=== PATIENT | female | born 1985 | race Caucasian/White ===

== ENCOUNTER 2020-10-17 07:06 | Day surgery (SDC) | payer MEDICAID, SELFPAY ==
[2020-10-12 08:37] LABS: Hematocrit 43.5 % (37-47); Hemoglobin 14.1 g/dL (12.0-15.0); Mean Corp Hgb Conc 32.4 g/dL (32-36); Mean Corpuscular Hgb 29.6 pg (27.0-32.0); Mean Corpuscular Volume 91.2 fL (81-99); Mean Platelet Vol. 10.2 fl (6.2-12.0); Platelet Count 288 K/mm3 (150-450); RBC Distribution Width CV 13.2 % (11.6-14.6); RBC Distribution Width SD 44.4 fl (35.1-43.9); Red Blood Count 4.77 M/mm3 (4.2-5.4); White Blood Count 5.8 K/mm3 (4.4-11.0)
--- NOTE | 2020-10-15 08:38 | PCM.HP.BLA ---
History and Physical Date of Admission: 10/17/20 Renee Hicks Physician Specialty: TAX COMPLIANCE REPRESENTATIVE H&P ? Signed Encounter Date: 10/09/2020 Expand AllCollapse All Expand All by Default Hide copied text Grahamver for details Pre-Op History and Physical ? HPI: The patient is a 35 year old female presenting for discussion regarding surgical sterilization and Leslee endometrial ablation procedures. Patient previously counseled on permanency of sterilization but wishes to proceed at this time. Patient has a history of abnormal uterine bleeding and recently had an endometrial biopsy which was benign. Patient would like to proceed with laparoscopic bilateral salpingectomy, hysteroscopy, Leslee endometrial ablation. ? She is scheduled for laparoscopic bilateral salpingectomy, hysteroscopy, Leslee endometrial ablation on 10/17/20. Procedure discussed along with risks, benefits and complications. Other alternatives discussed for management. Consent form signed? Yes. ? ? PAST MEDICAL HISTORY PAST MEDICAL HISTORY Diagnosis Date ? Abnormal Pap smear ? ? Adjustment disorder with depressed mood 03/23/2005 ? Condyloma acuminata ? ? Gonococcal cervicitis ? ? ? PAST SURGICAL HISTORY PAST SURGICAL HISTORY Procedure Laterality Date ? DELIVERY ONLY ? 01/03/15, 11/17/2004 ? , low transverse ? CONIZATION OF CERVIX, LEEP ? 07/01/2010 ? EXCIS BREAST LESION ? 01/24/2019 ? HEMORR, EXT THROMB ENUCL/ EXCIS ? 2014 ? VAGINOSCOPY ? CURRENT MEDICATIONS Current Outpatient Medications Medication Sig Dispense Refill ? ibuprofen (MOTRIN) 600 mg tablet Take 1 tablet by mouth every 6 hours as needed for Pain. 30 tablet 0 ? simethicone, chewable (MYLICON) 80 mg chewable tablet Take 1 tablet by mouth every 6 hours as needed. 30 tablet 0 ? No current facility-administered medications for this visit. ? ? ALLERGIES: Dust and Latex ? PERSONAL HISTORY: SOCIAL HISTORY Social History ? Tobacco Use ? Smoking status: Current Every Day Smoker ? ? Packs/day: 0.50 ? ? Years: 14.00 ? ? Pack years: 7.00 ? ? Types: Cigarettes ? Smokeless tobacco: Never Used Vaping Use ? Vaping Use: Never used Substance Use Topics ? Alcohol use: Yes ? ? Comment: Rarely ? Drug use: Not Currently ? ? Types: Marijuana, Cocaine, LSD ? ? Comment: not since 2005, no history of IVDA ? FAMILY HISTORY: FAMILY HISTORY FAMILY HISTORY Problem Relation Age of Onset ? Cancer Mother ? ? cervical ? Fibromyalgia Mother ? ? Breast Cancer Mother 35 ? Asthma Mother ? ? other (Lupus) Mother ? ? Kidney Disease Father ? ? Heart Attack Father ? ? Fibromyalgia Sister ? ? other (Lupus) Sister ? ? other (Crohn's) Sister ? ? No Known Problems Sister ? ? No Known Problems Sister ? ? No Known Problems Sister ? ? Thyroid Brother ? ? No Known Problems Brother ? ? No Known Problems Brother ? ? Breast Cancer Maternal Grandmother ? ? Emphysema Maternal Grandfather ? ? No Known Problems Daughter ? ? Cancer Sister ? ? cervical ? Fibromyalgia Sister ? ? No Known Problems Daughter ? ? ? REVIEW OF SYMPTOMS: negative except as noted above PHYSICAL EXAMINATION: ? VITALS: Blood pressure 110/72, weight 114 lb (51.7 kg), last menstrual period 09/19/2020. ? GENERAL: The patient is well nourished, well hydrated in no acute distress. , The patient is oriented to time, place, and person. NECK: full range of motion WET PREP: Not indicated ? IMPRESSION: Desires permanent sterilization, abnormal uterine bleeding ? PLAN: Laparoscopic bilateral salpingectomy, hysteroscopy, Leslee endometrial ablation. ? Patient was counseled on nonpermanent control options but declines at this time. Endometrial biopsy was benign and repeat STD screening was negative. Patient declines further hormonal therapy at this time- previously tried and had negative side effects ? Pt has been counseled on risks/benefits and alternatives of surgery including but not limited to anesthesia, bleeding, infection, injury to pelvic structures including bowel, bladder, ureters and vessels. Pt wishes to proceed with surgery at this time. ? Title 19 signed previously 09/11/20 ? ? I have reviewed and updated past medical and surgical history, medications and allergies Renee Hicks MD Office Visit on 10/09/2020 Office Visit on 10/09/2020 Note shared with patient
[2020-10-17] VITALS (7 sets, daily range): BP systolic 101–110; BP diastolic 60–80; PULSE 52–75; RESP 14–16; TEMP 36.2–36.6; O2SAT 100; BMI 16.9
[2020-10-17 07:39] LABS: Internal QC Validated? YES +Cl - CLEAR BKGD
[2020-10-17 07:41] LABS: Pregnancy, Urine Negative Negative
[2020-10-17] MEDS: Lactated Ringers 1,000 ML 100 ML IV ×2 (07:47→10:16)
--- NOTE | 2020-10-17 08:25 | DCINST_ITS ---
Discharge Diet: No Restrictions, - - Increase fluid intake for 48 hours. Discharge Activity: Return to Normal Activity, May Drive - when you are no longer taking narcotic pain medications., May Shower, May Take a Tub Bath - in 7 days., - - Ambulate often the next week after surgery. May resume sexual activity in: 1 week Lifting Restrictions: 20-25 Additional Activity Instructions:: Nothing in the vagina for the next 5 days. Call your doctor if your incision/area has: Continuous Slow Oozing, Sudden Increased Bleeding, Increased Pain/ Swelling, Increased Redness, Foul Smelling Discharge, Swelling at the incision site Call your doctor if you observe: Fever of 101 or Higher, Using more than one pad per hour Allergies/Adverse Reactions: Allergies latex Allergy (Verified 10/09/20 12:51) Other yeast infection with latex condom use pollen extracts Allergy (Verified 10/09/20 12:52) Other Primary Care Physician: Care Physician,No Primary [Primary Care Provider] - Test Results: Test results from this visit will be discussed in further detail at your follow- up appointment, if applicable. Please Follow Up With: Renee Clay MD When: 2 weeks call [phone]
--- NOTE | 2020-10-17 08:27 | PCM.OPRPT ---
Report of Operation Date of Procedure: 10/17/20 - start 905 end time 0948 Pre-Operative Diagnosis: Desires sterilization, AUB Post-Operative Diagnosis: same, endometriosis Surgery/Procedure Performed:: Hysteroscopy, Laparoscopic bilateral salpingectomy - failed Leslee ablation Description of Surgical Findings:: Uterine cavity anteflexed- Measured 9cm with Endocervical canal at 4cm. LESLEE device attempted mulitple times but unable to deploy completely likely due to width. On last attempt it was felt that a perforation was made at the fundal aspect- procedure stopped and laparoscopic portion ensued. nuclear equipment design engineer: reyna Rodrigez Type of Anesthesia:: General Special Medications: 0.5% marcaine Specimen's removed: bilateral fallopian tubes Drains: none Estimated Blood Loss (mL): 5 Fluids Replaced: 1000 Description of Procedure: After informed consent was obtained patient taken to the operating room she is placed in supine position she is given anesthesia simply self insert she is prepped draped normal sterile fashion. Bladder was drained prior to the start of the procedure. At this time the weighted speculum was placed the posterior fornix of the vagina then a single-tooth tenaculum was used to grasp the anterior lip of the cervix. At this time the uterus was sounded to approximately 9 cm the endocervical canal sounded to 4cm. Next cervix was dilated in incremental fashion. Once adequate dilatation was achieved the hysteroscope was inserted using normal saline as distention medium. On hysteroscopy no abnormalities appreciated. Unable to visualize tubal ostia. Cavity appeared to be narrow but attempted Leslee was still done. At this time the Leslee device was opened. The Leslee was set at 5cm. The device was placed but unable to deploy device completely possibly due to narrow uterus. Multliple attempts were made and were unsuccessful. on last attempt i felt possibl eperforation occurred- procedure stopped. Legs were placed in parallel with the abdomen the tenaculum and the weighted speculum were removed. 2 towel clamps were placed at level of umbilicus. Marcaine was injected infraumbilical and a small incision was made. The 5 mm trocar was placed under direct visualization. CO2 gas was used to insufflate the intra-abdominal cavity. At this time then the LLQ and RLQ ports were placed First Marcaine was injected and small incision was made a knife and the 5 mm trocars were placed.Upon inspection no gross abnormalities appreciated- Small perforation site on fundal aspect- left side of uterus- minimal oozing- surround bowel and pelvic structures were normal and no signs of injury. Adhesions to bladder and anterior lower aspect of uterus. The right tube was normal- possible endometriotic lesion on posterior aspect of right ovary, left ovary and bilateral side yeager as well as in posterior culdesac. the left tube was enlarged- upon manipulation and dissection the tube expelled blood- hematosalpinx. At this time then tubes were traced back to the fimbriated ends. Ligasure was used to coagulate and ligate along mesosalpinx bilaterally until tubes removed completely. Good hemostasis was appreciated. At this time procedure was deemed complete successful. The gas was desufflated on from the intra-abdominal cavity. The trochars were removed. Skin was closed using 4-0 Monocryl in a subcutaneous fashion. Dermabond glue was placed. Instrument lap and needle counts were correct ?2. The uterine manipulator was removed. Vaginal sweep was performed it was negative. There were no complications anticipated normal postoperative course for this patient. will recommend Mirena IUD vs Oral hormonal therapy for Suppression of endometriosis and AUB. Grafts/Implants Used: none - Complications uterine perforation- unable to deploy leslee device- possibly due to narrow cavity. 2 gram ancef given prior to leaving OR. - Admit VTE Documentation VTE Present on Admission: Yes VTE Mechan Device Prophylaxis: SCD's VTE Pharm Prophylaxis ordered?: No
--- NOTE | 2020-10-17 08:45 | FALS_PTH ---
PATIENT: NATAN HERNDON LOC: [facility] [place] U#:[id number] AGE/SX: 35/F ROOM: RE10/17/[address]: Dr. Renee Clay, MDDOB: 1985 BED: DIS: 10/17/2020 SPEC #: [id number] RECD: 10/17/20 10:37 STATUS: SHIMON MICHI #: [id number] HARSH: 10/17/20 08:[address]: Renee Clay DEPT: SURGICAL PATHOLOGY RECD BY: Trisha Mcrae ENTERED: 10/17/20 12:37 SP TYPE: FALL TUBES OTHR DR: No Primary Care Phys Tissues: Fallopian tube Procedures: Surgery Specimen Level III Surgery Specimen Level IV HEADER OPERATION: Hysteroscopy, laparoscopic salpingectomy PRE-OP DIAGNOSIS: Sterilization, abnormal uterine bleeding TISSUE SUBMITTED: Bilateral fallopian tubes MICROSCOPIC DIAGNOSIS Bilateral fallopian tubes, salpingectomy: One fallopian tube with mild mucosal acute and chronic inflammation, hydrosalpinx, and occluded fimbrial end. Second fallopian tube - no pathologic diagnosis. CHANTELLE:alessio 10/18/2020 MICROSCOPIC DESCRIPTION Slides are reviewed. GROSS DESCRIPTION Received in fixative is one container labeled with the patient's name and designated bilateral fallopian tubes. The specimen consists of bilateral fallopian tubes. One of the fallopian tubes measures 10 cm in length and up to 1 cm in diameter. A distinct fimbrial end is not identified. The second fallopian tube is received in multiple pieces. The two large pieces measure 7.5 cm in length and 0.5 cm in diameter. The fimbrial end is identified in one of the pieces. Two smaller ill-defined pieces are also noted measuring in aggregate 1 x 0.5 x 0.1 cm. One of the pieces appear to consist of paratubal cyst. Sections reveal unremarkable cut surfaces. Sections of fallopian tube without fimbrial end shows a dilated lumen filled with field mucoid material. The lumen measures up to 0.4 cm in diameter. Warehouse Receiving Supervisor sections are submitted in three cassettes as follows: 1 - fallopian tube received in multiple pieces including small paratubal cyst, 2 & 3 - fallopian tube without distinct fimbrial end and dilated lumen. / CHANTELLE:alessio 10/17/20 TC:2 CPT: 71460, 49500
[2020-10-17] MEDS: Bupivacaine Mpf 0.5% 30 ML VIAL (09:40)
--- NOTE | 2020-10-22 08:57 | PCM.PN.BLA ---
Progress Note late entry: i have reexamined the patient prior to her procedure- there were no changes to her status.
== END 2020-10-17 12:04 | disposition home or self-care (01) ==
LOC: SDC 07:06 → AC 07:06
PROVIDERS: Anesthesiology; Referring Provider Obstetrics & Gynecology; Visit Provider Obstetrics & Gynecology
PROC: 0U5B8ZZ Destruction of Endometrium, Via Natural or Artificial Opening Endoscopic (ICD-10-PCS; CPT 58558; 2020-10-17 08:30)
DX: Z30.2 Encounter for sterilization (principal); N93.9 Abnormal uterine and vaginal bleeding, unspecified; F17.200 Nicotine dependence, unspecified, uncomplicated
CPT/HCPCS: 00952; 58563; 58661; 36415; 81025; 85027; 88302; 88304; 88305; J7120; J2405

== ENCOUNTER 2021-02-06 07:42 | Day surgery (SDC) | payer MEDICAID, SELFPAY ==
[2020-10-17 07:32] VITALS: BMI 16.9
--- NOTE | 2021-02-04 13:13 | PCM.HP.BLA ---
History and Physical Date of Admission: 02/06/21 Renee Hicks MD Physician Specialty: NATURAL GAS PLANT TECHNICIAN H&P ? Signed Encounter Date: 01/27/2021 Expand AllCollapse All Expand All by Default Hide copied text Hover for details Pre-Op History and Physical ? HPI: The patient is a 36 year old female presenting for discussion regarding definitive management for endometriosis, abnormal uterine bleeding, pelvic pain. Patient recently underwent a laparoscopic bilateral salpingectomy and was noted to have endometriosis on exam of pelvic cavity. Patient was to have a Leslee ablation performed but due to cavity restrictions was in able to have that performed. Patient remained on Aygestin as she is not a candidate for combined oral contraceptive therapy due to smoking history. Patient has failed Aygestin with continuous bleeding and discomfort. Patient would like to proceed with definitive surgical management a total laparoscopic hysterectomy cystoscopy. ? She is scheduled for TLH, cystoscopy, for AUB, endometriosis, pelvic pain. on 02/06/21. Procedure discussed along with risks, benefits and complications. Other alternatives discussed for management. Consent form signed? Yes. ? ? PAST MEDICAL HISTORY PAST MEDICAL HISTORY Diagnosis Date ? Abnormal Pap smear ? ? Adjustment disorder with depressed mood 03/23/2005 ? Condyloma acuminata ? ? Endometriosis ? ? found on lap salpingectomy ? Gonococcal cervicitis ? ? ? PAST SURGICAL HISTORY PAST SURGICAL HISTORY Procedure Laterality Date ? DELIVERY ONLY ? 01/03/15, 11/17/2004 ? , low transverse ? CONIZATION OF CERVIX, LEEP ? 07/01/2010 ? EXCIS BREAST LESION ? 01/24/2019 ? HEMORR, EXT THROMB ENUCL/ EXCIS ? 2014 ? SALPINGECTOMY Bilateral 10/17/2020 ? bilatera- ENDOMETRIOSIS ? VAGINOSCOPY ? CURRENT MEDICATIONS Current Outpatient Medications Medication Sig Dispense Refill ? oxyCODONE-acetaminophen (PERCOCET) 5-325 mg tablet Take 1 tablet by mouth every 6 hours as needed for pain for up to 3 days. FOR PAIN. 10 tablet 0 ? docusate sodium (COLACE) 100 mg capsule Take 1 capsule by mouth twice daily. 30 capsule 0 ? buPROPion XL (WELLBUTRIN XL) 150 mg 24 hr tablet Take 1 tablet by mouth once daily. (Patient not taking: Reported on 01/27/2021 ) 30 tablet 5 ? norethindrone (AYGESTIN) 5 mg tablet Take 1 tablet by mouth once daily. (Patient not taking: Reported on 01/27/2021 ) 30 tablet 5 ? No current facility-administered medications for this visit. ? ? ALLERGIES: Dust and Latex ? PERSONAL HISTORY: SOCIAL HISTORY Social History ? Tobacco Use ? Smoking status: Current Every Day Smoker ? ? Packs/day: 0.50 ? ? Years: 14.00 ? ? Pack years: 7.00 ? ? Types: Cigarettes ? Smokeless tobacco: Never Used Vaping Use ? Vaping Use: Never used Substance Use Topics ? Alcohol use: Yes ? ? Comment: Rarely ? Drug use: Not Currently ? ? Types: Marijuana, Cocaine, LSD ? ? Comment: not since 2005, no history of IVDA ? FAMILY HISTORY: FAMILY HISTORY FAMILY HISTORY Problem Relation Age of Onset ? Cancer Mother ? ? cervical ? Fibromyalgia Mother ? ? Breast Cancer Mother 35 ? Asthma Mother ? ? other (Lupus) Mother ? ? Kidney Disease Father ? ? Heart Attack Father ? ? Fibromyalgia Sister ? ? other (Lupus) Sister ? ? other (Crohn's) Sister ? ? No Known Problems Sister ? ? No Known Problems Sister ? ? No Known Problems Sister ? ? Thyroid Brother ? ? No Known Problems Brother ? ? No Known Problems Brother ? ? Breast Cancer Maternal Grandmother ? ? Emphysema Maternal Grandfather ? ? No Known Problems Daughter ? ? Cancer Sister ? ? cervical ? Fibromyalgia Sister ? ? No Known Problems Daughter ? ? ? REVIEW OF SYMPTOMS: negative except as noted above PHYSICAL EXAMINATION: ? VITALS: Blood pressure 102/60, weight 114 lb (51.7 kg), last menstrual period 10/16/2020. ? GENERAL: The patient is well nourished, well hydrated in no acute distress. , The patient is oriented to time, place, and person. NECK: full range of motion NEURO: alert and oriented x 3 ? IMPRESSION: 36yo with AUB, Pelvic pain, Endometriosis ? PLAN: TLH, Cystoscopy ? ERAS protocol reviewed. Pt is fully vaccinated for covid, no testing required PRE and POST op instructions reviewed ? Pt has been counseled on risks/benefits and alternatives of surgery including but not limited to anesthesia, bleeding, infection, injury to pelvic structures including bowel, bladder, ureters and vessels. Pt wishes to proceed with surgery at this time. ? ? I have reviewed and updated past medical and surgical history, medications and allergies Renee Hicks MD ?9:10 AM Office Visit on 01/27/2021 Office Visit on 01/27/2021 Note shared with patient
--- NOTE | 2021-02-05 14:08 | EKG12_ITS ---
Test Reason : PRE OP Blood Pressure : / mmHG Vent. Rate : 077 BPM Atrial Rate : 077 BPM P-R Int : 172 ms QRS Dur : 102 ms QT Int : 384 ms P-R-T Axes : 072 126 051 degrees QTc Int : 434 ms Normal sinus rhythm Biatrial enlargement Incomplete right bundle branch block Abnormal ECG Confirmed by BREONNA CONLEY, CARLOS ([id number]), video editor JOSE FARLEY ([id number]) on 02/06/2021 10:43:23 AM Referred By: Renee Clay Confirmed By:CARLOS RAVI MD
[2021-02-05 14:53] LABS: Hematocrit 41.1 % (37-47); Hemoglobin 13.3 g/dL (12.0-15.0); Mean Corp Hgb Conc 32.4 g/dL (32-36); Mean Corpuscular Hgb 28.6 pg (27.0-32.0); Mean Corpuscular Volume 88.4 fL (81-99); Mean Platelet Vol. 9.5 fl (6.2-12.0); Platelet Count 297 K/mm3 (150-450); RBC Distribution Width SD 42.2 fl (35.1-43.9); Red Blood Count 4.65 M/mm3 (4.2-5.4); White Blood Count 6.8 K/mm3 (4.4-11.0)
[2021-02-05 15:33] LABS: Magnesium 2.3 mg/dL (1.6-2.6)
[2021-02-06] VITALS (10 sets, daily range): BP systolic 101–136; BP diastolic 55–72; PULSE 59–72; RESP 16; TEMP 36–36.9; O2SAT 100; BMI 17.4
[2021-02-06] MEDS: Celecoxib 200 MG Capsule 400 MG PO (08:34)
[2021-02-06] MEDS: Phenazopyridine 95 MG Tablet 190 MG PO (08:34)
[2021-02-06] MEDS: dexAMETHasone 10 MG/ML Vial 8 MG IV (08:35)
[2021-02-06] MEDS: Lactated Ringers 1,000 ML 40 ML IV ×3 (08:35→10:45)
[2021-02-06] MEDS: Gabapentin 600 MG Tablet PO (08:35)
[2021-02-06] MEDS: Enoxaparin 40 MG/0.4 ML Syringe SC (08:35)
[2021-02-06] MEDS: Acetaminophen 500 MG Tablet 1000 MG PO ×2 (08:36→13:23)
[2021-02-06] MEDS: Scopolamine 1mg/72hr Patch 1 PATCH TD (08:36)
[2021-02-06 09:01] LABS: Bedside Glucose 81 mg/dL (70-110)
--- NOTE | 2021-02-06 09:45 | HYST_PTH ---
PATIENT: NATAN HERNDON LOC: [facility] – [place] U#:[id number] AGE/SX: 36/F ROOM: RE02/06/[address]: Dr. Renee Clay, MDDOB: 1985 BED: DIS: 02/06/2021 SPEC #: [id number] RECD: 02/06/21 13:39 STATUS: SHIMON MICHI #: [id number] HARSH: 02/06/21 09:[address]: Renee Clay DEPT: SURGICAL PATHOLOGY RECD BY: Tali Bangura ENTERED: 02/07/21 08:37 SP TYPE: HYSTERECT CLARICE DR: No Primary Care Phys Tissues: Uterus, NOS Procedures: Surgery Specimen Level V HEADER OPERATION: ERAS, hysterectomy, TLH, cystoscopy PRE-OP DIAGNOSIS: AUB, pelvic pain, endometriosis TISSUE SUBMITTED: Uterus and cervix MICROSCOPIC DIAGNOSIS Uterus and cervix, hysterectomy: Cervix - no pathologic diagnosis. Endometrium ? secretory endometrium. Myometrium ? intramural leiomyomas (largest measuring 3 cm in greatest dimension). CHANTELLE:alessio 02/10/2021 MICROSCOPIC DESCRIPTION Slides are reviewed. GROSS DESCRIPTION Received in fixative is one container labeled with the patient's name and designated uterus. The specimen consists of a uterus with attached cervix without fallopian tubes or ovaries measuring 11 x 10 x 6.5 cm and weighing 176 gm. The ectocervix is unremarkable. The cervical os is oval in contour. The endocervical canal measures 4 cm in length and is grossly unremarkable. The elongated endometrial cavity measures 4 x 2.5 cm. The velvety, light field endometrium measures up to 0.2 cm in thickness. The myometrial wall measures 2.5 cm in thickness. Sections reveal multiple nodules grossly resembles leiomyomas measuring 1.2 to 3 cm in greatest dimension. Spool Carrier sections are submitted as follows: 1??anterior cervix, 2??posterior cervix, 3 & 4 - anterior uterine wall, 5 & 6 - posterior uterine wall, 7??largest myometrial mass, 8 - second largest myometrial mass, 9 - third largest myometrial mass. / AM:alessio 02/07/21 TC:1 CPT: 65087
[2021-02-06] MEDS: Cefazolin 2 GM in 0.9% Normal Saline 100 ML IV (10:02)
[2021-02-06] MEDS: Lubricating Jelly 60 GM Tube 30 GM TOPICAL (10:22)
--- NOTE | 2021-02-06 11:29 | PCM.OPRPT ---
Problems Associated Problem List Diagnoses (1) Abnormal uterine bleeding (AUB): (2) Uterine fibroid: (3) Endometriosis: Report of Operation Date of Procedure: 02/06/21 Pre-Operative Diagnosis: AUB, ENDOMETRIOSIS, UTERINE FIBROIDS Post-Operative Diagnosis: SAME Surgery/Procedure Performed:: TLH, CYSTOSCOPY Description of Surgical Findings:: POSTERIOR FIBROID. ENDOMETRISOIS IN CDS AND LEFT PELVIC SIDE WALL. Surgeon: Renee Clay Assistant: Nanette Ulloa Type of Anesthesia: General and Local Special Medications: 0.5% MARCAINE Specimen's removed: UTERUS, CERVIX Drains: NONE Estimated Blood Loss (mL): 50 Fluids Replaced: 1100 Description of Procedure: Patient take to OR and prepped and draped in usual sterile fashion in dorsal lithotomy position with her arms tucked in a neurologically safe and neutral position. The uterus sounded to 8cm. The Automation Architect uterine manipulator was sutured into place at 12 position and coronado were placed. Attention was turned to the abdomen. All port sites were infiltrated with 0.5%marcaine before the incisions were made. The anterior abdominal wall was tented up with towel clamps and using a direct entry approach a 5 mm intraumbilical port was placed. Intraperitoneal placement was confirmed with the laparoscope and the pneumoperitoneum was created. The patient was placed in Trendelenburg and 5 mm right and left lower quadrant ports were placed under direct visualization. Air seal rapid insufflator was used. The bowel was swept away. Ovaries appeared normal. salpingectomy noted. The round ligaments were divided. The uteroovarian ligaments were sealed and cut. The anterior peritoneum was dissected down to create the bladder flap with blunt dissection and the LigaSure. The uterine arteries were isolated, clamped, sealed and cut. There was minimal back bleeding from the uterus. Straight bites on uterine artieries performed to drop them off the cuff. The maniipulator was used as guide to create colpotomy using monopolar tip of ligasure. once specimen was removed attention was turned to vaginal portion. The specimen was handed off. the posterior peritoneum was run with 2-0 vicryl in running locked fashion. The cuff was closed with interrupted 0-vicryl figure of 8 sutures. Cystoscopy was performed bilateral ureters were visualized with good efflux. bladder was intact. coronado replaced and sponge stick placed in vagina. The pneumoperitoneum was recreated and the cuff and pedicles were hemostatic. Ame was placed over cuff and pedicles. The skin incisions were closed with skin glue and 3-0 monocryl . The vaginal sweep was completed by me. coronado catheter remained out. Grafts/Implants Used: none respiratory care assistant helped to manipulate camera and uterus as well as retract during closure of cuff. No resident available. Grafts/Implants Used: NONE Procedure Start Time: 10:22 Procedure Stop Time: 11:31 Complications NONE Admit VTE Documentation VTE Present on Admission: Yes VTE Mechan Device Prophylaxis: SCD's VTE Pharm Prophylaxis ordered?: Yes
--- NOTE | 2021-02-06 11:39 | EX.PCM.DISCH ---
Discharge Instructions Diet Discharge Diet: No restrictions Activity Discharge Activity: May Not Drive (while taking narcotics. may drive when pain controlled. ) and May Shower May shower in (days): 1 May resume sexual activity in: 6-8 weeks Weight Bearing Status: Full weight bearing Lifting Restrictions: 20 Additional Activity Instructions:: NOTHING IN THE VAGINA x 6-8 weeks. Dressing / Incision Call your doctor if your incision/area has: Continuous Slow Oozing, Sudden Increased Bleeding, Increased Pain/ Swelling, Increased Redness, Foul Smelling Discharge and Swelling at the incision site Call your doctor if you observe: Fever of 101 or Higher, Inability to have a bowel movement, Using more than 1 pad per hour and Uncontrolled pain Change Dressing in: leave in place till F/U (you have skin glue over incision sites- do not pick off) Cleanse incision/area with: Soap & Water, Keep Dressing Clean & Dry and - (you may let soap and water run over incision sites and dab dry. ) Follow Up Care Please Follow Up With: Renee Clay MD When: 2 weeks as scheduled for post op visit Test Results: Test results from this visit will be discussed in further detail at your follow-up appointment, if applicable. Discharge Plan Admission Attending Provider: Renee Clay Primary Care Provider: Care Physician,Liza Primary Discharge Orders/Prescriptions Prescriptions: No Action NK RF: 0 Referrals / Follow Up: Care Physician,Liza Primary [Primary Care Provider] - Disposition Disposition (needs filled in before D/C Order can be placed): Home, Self Care
[2021-02-06] MEDS: Ondansetron 4 MG/2 ML Vial IV (12:14)
[2021-02-06 14:51] LABS: Hematocrit 37.7 % (37-47); Hemoglobin 12.4 g/dL (12.0-15.0); Mean Corp Hgb Conc 32.9 g/dL (32-36); Mean Corpuscular Hgb 29.2 pg (27.0-32.0); Mean Corpuscular Volume 88.7 fL (81-99); Mean Platelet Vol. 9.5 fl (6.2-12.0); Platelet Count 282 K/mm3 (150-450); RBC Distribution Width CV 12.9 % (11.6-14.6); RBC Distribution Width SD 42.1 fl (35.1-43.9); Red Blood Count 4.25 M/mm3 (4.2-5.4); White Blood Count 12.4 K/mm3 (4.4-11.0)
== END 2021-02-06 15:21 | disposition home or self-care (01) ==
LOC: SDC 07:43 → AC 07:43
PROVIDERS: Anesthesiology; Referring Provider Obstetrics & Gynecology; Visit Provider Obstetrics & Gynecology
PROC: 0UT94ZZ Resection of Uterus, Percutaneous Endoscopic Approach (ICD-10-PCS; CPT 52000; principal; 2021-02-06 09:30)
DX: N93.9 Abnormal uterine and vaginal bleeding, unspecified (principal); D25.1 Intramural leiomyoma of uterus; R10.2 Pelvic and perineal pain; N80.9 Endometriosis, unspecified; F17.210 Nicotine dependence, cigarettes, uncomplicated; Z79.899 Other long term (current) drug therapy; Z80.3 Family history of malignant neoplasm of breast; Z82.49 Family history of ischemic heart disease and other diseases of the circulatory system; Z83.49 Family history of other endocrine, nutritional and metabolic diseases; Z90.79 Acquired absence of other genital organ(s)
CPT/HCPCS: 52000; 58570; 36415; 82962; 83735; 85027; 88307; 93005; J7120; J2405; J3475